=== PATIENT | male | born 1955 | race Caucasian/White ===

== ENCOUNTER → 2017-10-03 | Outpatient (CLI) | payer BC ==
[~2017-10-03] MED LIST: APIX5TAB PO; CARD180C5 PO; FLUD.1 PO; LIPI20TA PO; METO25TA3 PO
== END ==
LOC: HRSP 09:50
PROVIDERS: ATTEND Internal Medicine
DX: J44.9 Chronic obstructive pulmonary disease, unspecified (principal); R06.02 Shortness of breath
CPT/HCPCS: 94060; 94618; 94726; 94729